=== PATIENT | female | born 1960 | race Caucasian/White ===

== ENCOUNTER 2016-11-11 14:22 | Emergency (ER) | payer SELFPAY ==
[~2016-11-11] VITALS: Ht 165.1 cm; Wt 55.9 kg
[~2016-11-11 14:22] MED LIST: PENI-82 PO; [UNRECOGNIZED DRUG - CODE]
[2016-11-11 14:26] VITALS: BP 119/83; PULSE 92; TEMP 36.9; O2SAT 97; Ht 165.1 cm; Wt 55.9 kg
[2016-11-11] MEDS ORDERED: ASCO500C43 PO (15:05)
[2016-11-11] MEDS ORDERED: IBUP-1050 PO (15:05)
[2016-11-11] MEDS ORDERED: SULF800T23 PO (15:08)
[2016-11-11] MEDS ORDERED: PHEN-876 PO (15:08)
[2016-11-11] MEDS ORDERED: SEPTRA DS HOME PACK 1 EA VIAL PO ONE (15:15)
[2016-11-11] MEDS ORDERED: PHENAZOPYRIDINE HOME PACK 200 MG VIAL PO ONE (15:15)
[2016-11-11 15:59] LABS: URINE APPEARANCE CLEAR (CLEAR); URINE BILIRUBIN NEG (NEG); URINE COLOR YELLOW; URINE EPITHELIAL CELL AUTO 0-5 /lpf (0-5); URINE NITRITE NEG (NEG); URINE PH 7.5 (4.5-7.5); UROBILINOGEN NEG (NEG)
[2016-11-11 16:00] LABS: MANUAL MICROSCOPIC REQUIRED? NO; REVIEW REQ? YES
--- NOTE | 2016-11-13 17:16 | EMERGENCY ROOM VISIT NOTE ---
ED Visit Note First contact with patient: 14:41 Chief Complaint: Urinary discomfort. History of Present Illness: Ms. Meléndez is a 56-year-old white female who ambulates into the ED accompanied by her daughter complaining of urinary symptoms. Patient reports approximately 1.5 weeks ago she started experiencing urinary burning. Initially the symptoms were mild and gradually increased in intensity but then approximately 4 days ago she started resolving. Over the last 2 days they have returned and are more intense. She reports every time she goes to the bathroom she has burning with urination. She rates his discomfort 5/10. The pain is located in her urethral area. Her pain resolves shortly after urination. She has not taken any medications for her discomfort prior to arrival at the hospital. Associated with her pain she reports she has feelings of incomplete voiding, mild hematuria and mild itching of the genitals. She denies fevers, chills, sweats, skin eruptions, skin color changes, upper respiratory tract symptoms, chest pain, shortness of breath, abdominal pain, nausea, vomiting, flank pain, vaginal bleeding, vaginal discharge, painful intercourse. Review of Systems: As noted above in history of present illness. All body systems were reviewed and found to be negative as noted above. Past Medical History: Unspecified skin disorder, status post section. Current Medications: Vitamin C, ibuprofen. Allergies to Medications: Patient denies. Social History: Patient is currently employed; she feels safe in her home environment; she admits to tobacco and alcohol use. Physical Examination: Vital Signs: Date Time Temp Pulse Resp B/P (MAP) Pulse Ox O2 Delivery O2 Flow Rate FiO2 11/11/16 14:26 36.9 92 18 119/83 97 Room Air GENERAL: 56-year-old female in no acute distress, nontoxic-appearing, afebrile and hemodynamically stable. NEUROLOGICAL: Awake, alert and oriented to person, place and time. Answering questions appropriately and following commands. Normal gait. Good hand eye coordination. SKIN: Warm, dry and pink. HEENT: Atraumatic and normocephalic. Sclera white and conjunctiva pink. No drainage from naris. Speech normal. No lymphadenopathy. Trachea midline. No jugular venous distention. BACK: No tenderness over the bony spine. No CVA tenderness. THORAX: Lungs sounds are clear to auscultation and equal bilaterally with symmetrical chest wall. ABDOMEN: Flat, soft and nontender. Positive bowel sounds in all quadrants. No guarding, rigidity or organomegaly. EXTREMITIES: Moves all extremities well on command and with purpose. All distal neurovascular statuses are intact and equal bilaterally. ED Course: Patient is assessed as noted above. Patient's medication list was reviewed. Urine Dip: +30 protein, 250 blood +2 leukocytes; negative glucose, ketones and nitrates. Test 11/11/16 14:50 Range/Units Urine Color YELLOW Urine Appearance CLEAR CLEAR Urine pH 7.5 4.5-7.5 Urine Specific [place] 1.010 1.000-1.030 Urine Protein NEG NEG Urine Glucose (UA) NEG NEG Urine Ketones NEG NEG Urine Occult Blood 3+ NEG Urine Nitrite NEG NEG Urine Bilirubin NEG NEG Urine Urobilinogen NEG NEG Urine Leukocyte Esterase LARGE NEG Urine WBC (Auto) >30 0-5 /hpf Urine RBC (Auto) 0-4 0-4 /hpf Urine Hyaline Casts (Auto) 0 0-5 /lpf Urine Epithelial Cells (Auto) 0-5 0-5 /lpf Urine Bacteria (Auto) NEG NEG Urine Pathogenic Casts 0 /lpf Urine Culture: Pending. Patient was educated about today's findings and instructed on her treatment plan ; she verbalizes understanding and agreement with this plan. Clinical Impression: Urinary tract infection. Disposition: Patient discharged home accompanied by her daughter; prior to departure she was reassessed and subjectively reported she was feeling the same. Plan: Patient was prescribed Bactrim DS and Pyridium and educated on that she use. Patient was encouraged to increase clear fluids. Patient was encouraged to follow-up with her family physician for recheck and culture results in 48 hours. Patient was encouraged return ED for worsening symptoms, fevers, vomiting, flank pain or any new/concerning symptoms.
== END 2016-11-11 15:35 | disposition home or self-care (01) ==
LOC: C.EDB 14:24 → C.EDD 15:35
DX: N39.0 Urinary tract infection, site not specified (principal); F17.200 Nicotine dependence, unspecified, uncomplicated